=== PATIENT | female | born 1980 | race Caucasian/White ===

== ENCOUNTER 2021-03-25 13:44 | Emergency (ER) | payer OTHER ==
[~2021-03-25] VITALS: Ht 170.2 cm; Wt 54.4 kg
[~2021-03-25 13:44] MED LIST: ACET325T53 PO; CITA40TA22 PO; GABA-534 PO; HYDR50TA61 PO; PRAZ2CAP2 PO; PROM25TA15 PO
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
[2021-03-25 14:18] LABS: BASOPHILS % (AUTO) 0.4 % (0.0-2.0); EOSINOPHILS % (AUTO) 3.2 % (0.0-6.0); HEMATOCRIT 40 % (33-45); HEMOGLOBIN 13.5 g/dL (11.5-14.8); LYMPHOCYTES # (AUTO) 2.3 /CMM (0.8-4.8); LYMPHOCYTES % (AUTO) 26.2 % (20.0-44.0); MEAN CORPUSCULAR HGB CONC 34 g/dl (31.0-36.0); MEAN CORPUSCULAR VOLUME 95 fL (82-100); MONOCYTES # (AUTO) 0.6 /CMM (0.1-1.30); MONOCYTES % (AUTO) 6.9 % (2.0-12.0); NEUTROPHILS # (AUTO) 5.7 /CMM (1.8-8.9); NEUTROPHILS % (AUTO) 63.3 % (43.0-81.0); PLATELET COUNT (AUTO) 97 /CMM (150-450); RED BLOOD CELL COUNT(AUTO) 4.17 MIL/uL (4.0-5.2); WHITE BLOOD COUNT (AUTO) 8.9 K/uL (4.3-11.0)
[2021-03-25 14:26] LABS: CALCIUM, SERUM 9.5 mg/dL (8.5-10.1); POTASSIUM 3.8 mmol/L (3.5-5.1)
[2021-03-25 14:31] LABS: ALBUMIN 4.1 g/dL (3.4-5.0); BILIRUBIN,DIRECT 0.1 mg/dL (0.0-0.2); BILIRUBIN,TOTAL 0.6 mg/dL (0.2-1.0); TOTAL PROTEIN, SERUM 7.3 g/dL (6.4-8.2)
[2021-03-25 15:43] LABS: LYMPHOCYTES % (MANUAL) 29 % (16-48); NEUTROPHILS % (MANUAL) 60 (42-76)
--- NOTE | 2021-03-25 15:43 | NUR ---
BORDEREAU CLERK AT FOR EVAL.
[2021-03-25 15:44] LABS: EOSINOPHILS % (MANUAL) 1 % (0-4); MONOCYTES % (MANUAL) 10 % (0-11.0)
--- NOTE | 2021-03-25 15:48 | NUR ---
Patient discharged to home in stable condition. Written and verbal after care instructions given. Patient verbalizes understanding of instruction.
[2021-03-25 15:50] VITALS: BP 118/60
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
== END 2021-03-25 15:51 | disposition home or self-care (01) ==
LOC: ER 13:49
DX: R10.31 Right lower quadrant pain (principal); R10.32 Left lower quadrant pain; Z98.890 Other specified postprocedural states; Z88.8 Allergy status to other drugs, medicaments and biological substances; Z91.011 Allergy to milk products; Z88.6 Allergy status to analgesic agent; Z59.0 Homelessness; Z79.899 Other long term (current) drug therapy
CPT/HCPCS: 36415; 76856-TC; 80048-TC; 80076-TC; 83690-TC; 85025-TC